=== PATIENT | male | born 1935 | race Caucasian/White ===

== ENCOUNTER 2021-09-09 09:27 | Inpatient (IN) | payer MEDICARE, OTHER ==
[~2021-09-09] VITALS: Ht 170.2 cm; Wt 60.0 kg
[2021-09-09] VITALS (8 sets, daily range): BP systolic 113–183; BP diastolic 61–86; PULSE 30–64; TEMP 97.4–98.5
[2021-09-09 10:10] LABS: BASO % 0.4 % (0.0-2.0); EOS # 0.1 K/mm3 (0.0-0.7); EOS % 1.2 % (0.0-4.0); GRAN # 7.2 K/mm3 (1.4-6.5); GRAN % 72.3 % (42.2-75.2); HEMATOCRIT 46.5 % (42.0-52.0); HEMOGLOBIN 15.9 g/dl (13.5-18.0); LYMPH # 1.9 K/mm3 (1.2-3.4); LYMPH % 18.6 % (20.0-51.0); MEAN CELL VOLUME 96 fl (80.0-100.0); MEAN CORPUSCULAR HEMOGLOBIN 33 pg (27-31); MEAN CORPUSCULAR HGB CONC 34 g/dl (33.0-37.0); MEAN PLATELET VOLUME 11.6 fl (7.4-10.4); MONO # 0.7 K/mm3 (0.1-0.6); MONO % 6.9 % (1.7-9.3); PLATELET COUNT 148 K/mm3 (130-400); RED BLOOD COUNT 4.83 M/mm3 (4.20-5.60); REDCELL DISTRIBUTION WIDTH-CV 13.5 % (11.5-14.5)
[2021-09-09] MEDS ORDERED: ZYLOPRIM 300MG300 MG PO (10:10)
[2021-09-09] MEDS ORDERED: SINEQUAN 1010 MG/CAP PO (10:11)
[2021-09-09] MEDS ORDERED: HYGROTON 2525 MG/TAB PO ×2 (10:12→10:13)
[2021-09-09] MEDS ORDERED: PROSCAR 5MG5 MG PO (10:14)
[2021-09-09] MEDS ORDERED: EPA FISH OIL1 SGL PO (10:15)
[2021-09-09] MEDS ORDERED: FISH OIL 1000MG1 CAP PO (10:16)
[2021-09-09] MEDS ORDERED: VITAMIN D250 MCG PO (10:17)
[2021-09-09] MEDS ORDERED: L-METHYLFOLATE15 MG PO (10:18)
[2021-09-09] MEDS ORDERED: CRESTOR 10MG10 MG PO (10:19)
[2021-09-09 10:22] LABS: PROTHROMBIN TIME 11.4 SECONDS (9.7-12.8)
[2021-09-09 10:26] LABS: ALBUMIN 3.8 gm/dL (3.4-4.8); BILIRUBIN,TOTAL 0.6 mg/dL (0.2-1.2); CALCIUM 9.8 mg/dL (8.4-10.2); CREATININE, serum 1.67 mg/dL (0.72-1.25); POTASSIUM 4.1 mmol/L (3.5-4.5); TOTAL PROTEIN 7.2 gm/dL (6.2-8.1)
[2021-09-09 10:35] LABS: TROPONIN-I 0.038 ng/mL (0.00-0.033)
--- NOTE | 2021-09-09 12:40 | NUR ---
SEE MERGE FOR ALL MEDICATION ADMINISTRATION TIMES/DOSAGES AND INTRA/POST PROCEDURE SEDATION ASSESSMENTS.
[2021-09-09] MEDS ORDERED: LOVAZA1 GM PO (13:52)
--- NOTE | 2021-09-09 14:00 | NUR ---
PATIENT RESTING IN BED AT THIS TIME WITH EYES OPEN. NO ACUTE NEEDS OBSERVED. DENIES PAIN AT THIS TIME. CONT MONITORING OF VITALS POST SURG. VITALS WNL. ELEVATED BP READING COMMUNICATED TO MD, ORDERS PROVIDED. WILL CONT TO MONITOR
[2021-09-09 16:25] LABS: COLLECTION METHOD CLEAN CATCH
[2021-09-09 17:05] LABS: PH 5 (5-8); SQUAMOUS EPITHELIAL None Seen /hpf (0-10); URINE APPEARANCE Clear (CLEAR/HAZY); URINE BACTERIA None Seen /hpf (NONE SEEN); URINE BILIRUBIN Negative (NEGATIVE); URINE BLOOD Negative (NEGATIVE); URINE COLOR Yellow (YELLOW); URINE GLUCOSE Negative (NEGATIVE); URINE KETONE Negative (NEGATIVE); URINE LEUKOCYTE ESTERASE Negative (NEGATIVE); URINE NITRATE Negative (NEGATIVE); URINE PROTEIN(semi-quant) Negative (NEGATIVE); URINE RBC 0-2 /hpf (0-2); URINE UROBILINOGEN Negative (NEGATIVE)
[2021-09-09 17:42] LABS: CREATININE, serum 1.54 mg/dL (0.72-1.25); FRACTIONAL EXCRETION OF NA+ 2.11 %
--- NOTE | 2021-09-09 18:49 | NUR ---
PT HAS HAD UNEVENTFUL EVENING POST PACER PLACEMENT. DENIES ANY PAIN. ICE PACK PLACED ON AND OFF FOR THE AFTERNOON. VITALS STABLE, NO OTHER CONCERNS. REPORT GIVEN TO CERAMICS ARTIST RN.
--- NOTE | 2021-09-09 21:35 | NUR ---
Patient assessed around 191. Alert and oriented x 4, and able to make needs known. Reported mild pain to left chest pacemaker site. Given PRN APAP. Declined ice. Sling to left arm. Dressing to left chest CDI. HRR. Telemetry in place. Denies SOB and dyspnea. LS CTA. BSAx4. Voices no questions, needs, or concerns at this time. Went over plan for CXR and device download in the morning, and voiced understanding. In bed with call light within reach.
[2021-09-10 03:56] VITALS: BP 135/73; PULSE 60; TEMP 97.5
--- NOTE | 2021-09-10 05:55 | NUR ---
Patient has been in bed with call light within reach. No further complaints of pain or discomfort to pacemaker site voiced since receiving PRN APAP. Did not want any ice to site. Attempted device download this morning x 2. Ipad not connecting to internet to complete download. Patient voices no questions, needs, or concerns at this time.
[2021-09-10 07:00] LABS: BASO % 0.4 % (0.0-2.0); EOS # 0.2 K/mm3 (0.0-0.7); EOS % 2.3 % (0.0-4.0); GRAN # 4.8 K/mm3 (1.4-6.5); GRAN % 69.2 % (42.2-75.2); HEMOGLOBIN 14.6 g/dl (13.5-18.0); LYMPH # 1.4 K/mm3 (1.2-3.4); LYMPH % 20.6 % (20.0-51.0); MEAN CELL VOLUME 98 fl (80.0-100.0); MEAN CORPUSCULAR HEMOGLOBIN 33 pg (27-31); MEAN CORPUSCULAR HGB CONC 34 g/dl (33.0-37.0); MEAN PLATELET VOLUME 12.1 fl (7.4-10.4); MONO # 0.5 K/mm3 (0.1-0.6); MONO % 7.1 % (1.7-9.3); PLATELET COUNT 115 K/mm3 (130-400); RED BLOOD COUNT 4.39 M/mm3 (4.20-5.60); REDCELL DISTRIBUTION WIDTH-CV 13.5 % (11.5-14.5)
[2021-09-10 07:17] LABS: CALCIUM 8.4 mg/dL (8.4-10.2); CREATININE, serum 1.58 mg/dL (0.72-1.25); POTASSIUM 3.8 mmol/L (3.5-4.5)
[2021-09-10 07:57] VITALS: BP 137/66; PULSE 61; TEMP 98
--- NOTE | 2021-09-10 08:00 | NUR ---
Patient assisted to the bathroom with a standby assist, A&Ox4. VSS. IV CDI. Incision site LF chest CDI, sling on left arm. Refusing ice on arm. Denies pain and discomfort. No further needs expressed. Call light within reach
--- NOTE | 2021-09-10 09:10 | NUR ---
Initial visit; Patient thanked Experimental Psychologist for looking in on him, visiting and offering prayer and God's blessings.
[2021-09-10 11:21] VITALS: BP 145/69; PULSE 66; TEMP 97.8
--- NOTE | 2021-09-10 11:35 | NUR ---
SW met with the patient to discuss discharge plan. The patient lives alone in [place] in [facility]. He reports independence with ADLs and does not have any DME. The patient's PCP is Dr. Shashank Logan and he receives his medications from [facility]. The patient does not have a DPOA-HC, but he was interested in obtaining a form. SW provided. He states he would like to talk to this children about the DPOA-HC. The patient is not and has three children: Emily Panda (ph#[phone]), Blas Cheatham (ph#[phone]), kai Cheatham (Jim). The patient plans on returning back to his independent living apartment upon discharge. The patient has been independently ambulating the halls. SW discussed home health services and it's benefits. The patient declined home health at this time. No additional needs at this time. *Discharge plan: home*
[2021-09-10] MEDS ORDERED: CEPHALEXIN500 M1 PO (12:25)
[2021-09-10] MEDS ORDERED: NORVASC 10MG10 MG PO (14:37)
--- NOTE | 2021-09-10 14:58 | NUR ---
The PA notified MIGUEL that the histological illustrator had some concerns about the patient being able to do pacemaker care and asked about [facility]. The patient's daughter, Emily, arrived to the hospital. MIGUEL addressed this concern and discussed home health. Emily reports that she will take this under consideration, but that her and family will take care of things right now. If they need anything, they will reach out to Ariela CORNEJO or his PCP. MIGUEL updated the PA.
--- NOTE | 2021-09-10 15:10 | NUR ---
Discharge paperwork reveiwed with the patient and daughter. Patient verbalized an understanding to follow doctors orders. IV removed, tip intact. Incision site LF chest CDI, sling on left arm. Patient taken by wheelchair to patient entrance. No further needs expressed.
== END 2021-09-10 15:10 | disposition home or self-care (01) | DRG 243 ==
LOC: EDBD 09:27 → COL.ER 09:27 → MEDICAL 10:38
PROVIDERS: Personal Emergency Response Attendant; Physician Assistant; ADMIT Student in an Organized Health Care Education/Training Program
PROC: 0JH606Z Insertion of Pacemaker, Dual Chamber into Chest Subcutaneous Tissue and Fascia, Open Approach (ICD-10-PCS; principal; 2021-09-09)
PROC: 02H60JZ Insertion of Pacemaker Lead into Right Atrium, Open Approach (ICD-10-PCS; 2021-09-09)
DX: I44.2 Atrioventricular block, complete (principal); N17.9 Acute kidney failure, unspecified; J98.11 Atelectasis; M10.9 Gout, unspecified; E78.00 Pure hypercholesterolemia, unspecified; N40.0 Benign prostatic hyperplasia without lower urinary tract symptoms; F32.A Depression, unspecified; I45.10 Unspecified right bundle-branch block; I08.0 Rheumatic disorders of both mitral and aortic valves; N18.9 Chronic kidney disease, unspecified; I12.9 Hypertensive chronic kidney disease with stage 1 through stage 4 chronic kidney disease, or unspecified chronic kidney disease; G31.84 Mild cognitive impairment of uncertain or unknown etiology; F03.90 Unspecified dementia, unspecified severity, without behavioral disturbance, psychotic disturbance, mood disturbance, and anxiety; Z87.891 Personal history of nicotine dependence; Z23 Encounter for immunization
CPT/HCPCS: 99223-AI; 99239; C1785; C1894; C1898; J0690; J1644; J2250; J3010; J7030; Q9967

== ENCOUNTER 2021-10-22 14:31 | Inpatient (IN) | payer MEDICARE, OTHER ==
[~2021-10-22 14:31] MED LIST: CEPHALEXIN500 M1 PO; CRESTOR 10MG10 MG PO; EPA FISH OIL1 SGL PO; FISH OIL 1000MG1 CAP PO; HYGROTON 2525 MG/TAB PO; L-METHYLFOLATE15 MG PO; LOVAZA1 GM PO; NORVASC 10MG10 MG PO; PROSCAR 5MG5 MG PO; SINEQUAN 1010 MG/CAP PO; VITAMIN D250 MCG PO; ZYLOPRIM 300MG300 MG PO
--- NOTE | 2021-11-09 09:07 | NUR ---
Patient arrived to the floor from admissions. No other concerns at this time.
[2021-11-09 09:36] LABS: BASO % 0.4 % (0.0-2.0); EOS # 0.1 K/mm3 (0.0-0.7); EOS % 1.4 % (0.0-4.0); GRAN # 6.1 K/mm3 (1.4-6.5); GRAN % 62.5 % (42.2-75.2); HEMATOCRIT 42.5 % (42.0-52.0); HEMOGLOBIN 14.8 g/dl (13.5-18.0); LYMPH # 2.8 K/mm3 (1.2-3.4); LYMPH % 28.2 % (20.0-51.0); MEAN CELL VOLUME 93 fl (80.0-100.0); MEAN CORPUSCULAR HEMOGLOBIN 33 pg (27-31); MEAN CORPUSCULAR HGB CONC 35 g/dl (33.0-37.0); MEAN PLATELET VOLUME 10.6 fl (7.4-10.4); MONO # 0.7 K/mm3 (0.1-0.6); MONO % 7.2 % (1.7-9.3); PLATELET COUNT 172 K/mm3 (130-400); RED BLOOD COUNT 4.56 M/mm3 (4.20-5.60); REDCELL DISTRIBUTION WIDTH-CV 13.2 % (11.5-14.5)
[2021-11-09 09:45] LABS: INR 1.1 (0.8-3.0); PROTHROMBIN TIME 12.3 SECONDS (9.7-12.8)
[2021-11-09 09:52] LABS: BILIRUBIN,TOTAL 0.5 mg/dL (0.2-1.2); CALCIUM 9.2 mg/dL (8.4-10.2); CREATININE, serum 1.25 mg/dL (0.72-1.25); POTASSIUM 4.1 mmol/L (3.5-4.5); TOTAL PROTEIN 7.3 gm/dL (6.2-8.1)
[2021-11-09 09:54] VITALS: BP 127/66; PULSE 62; TEMP 98
[2021-11-09] MEDS ORDERED: ELIQUIS 2.5 PO (10:46)
[2021-11-09] MEDS ORDERED: ARICEPT 5MG PO (10:50)
--- NOTE | 2021-11-09 11:01 | NUR ---
DAUGHTER STATES SHE IS LEAVING OUT OF TOWN 11/10/21; SON VANITA WILL BE POC FOR REMAINDER OF STAY, AND WILL BE TAKING HIM HOME ON DISCHARGE. BOTH VICKI AND VANITA ARE POINT OF CONTACTS IN THE CHART. STATES IT IS NOT UNCOMMON DUE TO DEMENTIA FOR THE PATIENT TO REPEAT HIMSELF AND BE VERY APOLOGETIC. THIS RN REASSURED THE PATIENT'S DAUGHTER THAT I WILL BE HERE WITH HIM FOR TODAY AND THE FOLLOWING 2 DAYS AFTER THAT. THE DAUGHTER DID ENSURE WE HAD THE CORRECT NUMBERS IN THE CHART FOR BOTH HER AND HER BROTHER. EVERYTHING IS CORRECT. NO OTHER CONCERNS AT THIS TIME. WILL CONTINUALLY CHECK ON THE PATIENT.
[2021-11-09 12:25] VITALS: BP 125/65; PULSE 64; TEMP 98
[2021-11-09 16:06] VITALS: BP 110/61; PULSE 65; TEMP 98.3
[2021-11-09 20:56] VITALS: BP 117/62; PULSE 63; TEMP 97.7
--- NOTE | 2021-11-09 23:44 | NUR ---
ALERT AND OX3. DENIES SOA, CHEST PAIN OR DIZZY. QTC 430 SOTOLOL GIVEN W NO SIDE EFFECTS. POC DISCUSSED. CALL LIGHT WI REACH. EKG WAS OBTAINED.
[2021-11-10 00:31] VITALS: BP 104/65; PULSE 60; TEMP 97.7
[2021-11-10 04:36] VITALS: BP 103/59; PULSE 61; TEMP 98.2
[2021-11-10 06:12] LABS: BASO % 0.6 % (0.0-2.0); EOS # 0.2 K/mm3 (0.0-0.7); EOS % 3.3 % (0.0-4.0); GRAN # 4.3 K/mm3 (1.4-6.5); GRAN % 61.5 % (42.2-75.2); HEMATOCRIT 40.8 % (42.0-52.0); HEMOGLOBIN 13.9 g/dl (13.5-18.0); LYMPH # 1.8 K/mm3 (1.2-3.4); LYMPH % 26.4 % (20.0-51.0); MEAN CELL VOLUME 93 fl (80.0-100.0); MEAN CORPUSCULAR HEMOGLOBIN 32 pg (27-31); MEAN CORPUSCULAR HGB CONC 34 g/dl (33.0-37.0); MEAN PLATELET VOLUME 11.2 fl (7.4-10.4); MONO # 0.5 K/mm3 (0.1-0.6); MONO % 7.8 % (1.7-9.3); PLATELET COUNT 155 K/mm3 (130-400); RED BLOOD COUNT 4.38 M/mm3 (4.20-5.60); REDCELL DISTRIBUTION WIDTH-CV 13.2 % (11.5-14.5)
[2021-11-10 06:26] LABS: CALCIUM 8.6 mg/dL (8.4-10.2); CREATININE, serum 1.2 mg/dL (0.72-1.25)
[2021-11-10 08:47] VITALS: BP 95/69; PULSE 68; TEMP 98.3
--- NOTE | 2021-11-10 09:48 | NUR ---
Initial visit; Patient thanked Bike Mechanic for providing God's blessings and keeping him in leadership development instructor's prayers.
--- NOTE | 2021-11-10 11:06 | NUR ---
therapeutic activities services worker met with patient to discuss discharge plan. Patient reports that he currently lives at home alone in [place], [place]. He states that he is fully independent with his ADL's and does not utilize any DME to assist with mobility. Patient reports to no home oxygen needs. Patient reports that he does not have a PCP currently and if he ever needs anything he just goes to the [place] [facility]. Notified the patient that we would establish his with a PCP upon discharge and inquired on who he would like to be established with. The patient could not remember the physcians name but states " it's a male". Patient utilizes [facility] for medications with no cost difficulty. Patient is unsure if he has a DPOA-HC established. He is and has 3 adult children. One is in [place], one is in and his daughter Emily Mosqueda ([phone]) lives in [place] about 3 miles from him. Patient is planning on returning home with no concerns. Discharge plan: Home
[2021-11-10 11:35] VITALS: BP 118/61; PULSE 61; TEMP 97.3
[2021-11-10 16:25] VITALS: BP 115/68; PULSE 72; TEMP 97.8
--- NOTE | 2021-11-10 19:36 | NUR ---
PT HAD UNEVENTFUL DAY. THE PATIENT WALKED THE FLOOR SEVERAL TIMES TODAY. DENIES ANY PAIN OR DISCOMFORT. NO OTHER CONCERNS. REPORT GIVEN TO KELLI PUCKETT.
[2021-11-10 21:04] VITALS: BP 107/63; PULSE 76; TEMP 97.5
[2021-11-11 01:18] VITALS: BP 94/52; PULSE 68; TEMP 97.4
--- NOTE | 2021-11-11 01:38 | NUR ---
PM MEDS GIVEN EKG OBTAINED FOR SOTOLOL. DENIES ANY S/S EFFECTS. NO LIGHTHEAD DIZZY OR CHEST PAIN. VSS. POC DISCUSSED. PT HOPES TO RETURN HOME TODAY. PT DAUGHTER CALLS FOR UPDATE LAST NIGHT. CALL LIGHT WI RIZWANA.
[2021-11-11 05:06] VITALS: BP 120/77; PULSE 70; TEMP 97.8
[2021-11-11 06:40] LABS: BASO % 0.6 % (0.0-2.0); EOS # 0.3 K/mm3 (0.0-0.7); EOS % 3.7 % (0.0-4.0); GRAN # 3.9 K/mm3 (1.4-6.5); GRAN % 57.2 % (42.2-75.2); HEMATOCRIT 41.1 % (42.0-52.0); HEMOGLOBIN 13.8 g/dl (13.5-18.0); MEAN CELL VOLUME 95 fl (80.0-100.0); MEAN CORPUSCULAR HEMOGLOBIN 32 pg (27-31); MEAN CORPUSCULAR HGB CONC 34 g/dl (33.0-37.0); MEAN PLATELET VOLUME 11.2 fl (7.4-10.4); MONO # 0.6 K/mm3 (0.1-0.6); MONO % 9.1 % (1.7-9.3); PLATELET COUNT 162 K/mm3 (130-400); RED BLOOD COUNT 4.33 M/mm3 (4.20-5.60); REDCELL DISTRIBUTION WIDTH-CV 13.2 % (11.5-14.5)
[2021-11-11 07:13] LABS: CALCIUM 8.9 mg/dL (8.4-10.2); CREATININE, serum 1.27 mg/dL (0.72-1.25); POTASSIUM 4.3 mmol/L (3.5-4.5)
[2021-11-11 07:33] VITALS: BP 122/81; PULSE 79; TEMP 97.7
--- NOTE | 2021-11-11 09:36 | NUR ---
Follow-up visit; Patient thanked Freezer Machine Operator for looking in on him again and offering God's blessings and keeping him in her prayers.
[2021-11-11 11:18] VITALS: BP 118/67; PULSE 75; TEMP 97.8
[2021-11-11] MEDS ORDERED: BETAPACE 80MG80 MG PO (11:29)
== END 2021-11-11 12:40 | disposition home or self-care (01) | DRG 310 ==
LOC: MEDICAL 11-09 08:39
PROVIDERS: ADMIT Internal Medicine Cardiovascular Disease
DX: I48.0 Paroxysmal atrial fibrillation (principal); Z79.01 Long term (current) use of anticoagulants